=== PATIENT | female | born 1935 | race Hispanic/Latino ===

== ENCOUNTER 2019-01-23 07:28 | Inpatient (IN) | payer MEDICARE, OTHER ==
[2019-01-23 08:13] LABS: #Lymphocytes 1.6 thou/uL (1.20-3.40); #Monocytes 0.3 thou/uL (0.11-0.59); #Neutrophils 8.1 thou/uL (1.40-6.50); %Basophils 0.4 % (0.0-1.0); %Eosinophils 0.2 % (0.0-10.0); %Lymphocytes 15.5 % (21.0-51.0); %Monocytes 3.4 % (0.0-10.0); %Neutrophils 80.6 % (42.0-75.0); Hemoglobin 13.6 g/dL (12.0-16.0); Mean Corpuscular HGB CONC 33.1 g/dL (32.0-36.0); Mean Corpuscular Hemoglobin 29.7 pg (27.0-31.0); Mean Corpuscular Volume 89.8 fL (78.0-98.0); Mean Platelet Volume 8.7 fL (7.4-10.4); Platelet Count 208 thou/uL (130-400); RBC Distribution Width 12.7 % (11.5-14.5); Red Blood Cell (RBC) Count 4.58 mill/uL (4.20-5.40); White Blood Cell (WBC) Count 10.1 thou/uL (4.8-10.8)
--- NOTE | 2019-01-23 08:15 | RAD ---
EXAM: CHEST ONE VIEW HISTORY: Altered mental status. COMPARISON: None FINDINGS: The cardiac silhouette and pulmonary vasculature is within normal limits. There is a mild increase in bibasilar interstitial densities which could be related to infectious process versus asymmetric pulmonary edema. Minimal atelectasis is seen in the region of the lingula. There is blunting of the l eft lateral costophrenic angle which is likely related to overlying soft tissue density. However, tiny left pleural effusion cannot be entirely excluded. The osseous structures are intact. Calcified left hilar lymph node is seen. Vascular calcifications are noted in the thoracic aorta. IMPRESSION: Increase in bibasilar interstitial densities which could be related to an element of mild asymmetric pulmonary edema versus infectious process. Follow-up chest x-ray is recommended.
--- NOTE | 2019-01-23 08:23 | CT ---
CT BRAIN WITHOUT CONTRAST: HISTORY:Altered mental status COMPARISON:There are no previous exams for comparison. FINDINGS: There are foci of decreased attenuation in the periventricular white matter, consistent with chronic small vessel ischemic disease. No evidence of acute infarct, hemorrhage, midline shift or abnormal extra-axial fluid collections is seen. The ventricular size is appropriate and the basilar cisterns are patent. The bony calvarium is intact. The visualized paranasal sinuses and mastoid air cells are well aerated. IMPRESSION: No CT evidence of acute intracranial process. .
[2019-01-23 08:29] LABS: Bilirubin Negative (Negative); Blood, Urine Trace (Negative); Clarity Clear (Clear); Glucose, Urine (Dipstick) Normal (Negative); Leukocyte 500 Leu/uL (Negative); Nitrite Negative (Negative); Protein, Urine (Dipstick) 20 mg/dL (Neg-Trace); Urobilinogen Normal mg/dL (Less than 2); WBC/HPF 21-50 HPF (0-3)
[2019-01-23 08:30] LABS: Bacteria/HPF 1+ HPF (None Seen)
[2019-01-23 08:37] LABS: ALT (SGPT) 13 U/L (8-55); AST (SGOT) 16 U/L (5-34); Albumin 4.3 g/dL (3.4-4.8); Alkaline Phosphatase 70 U/L (40-110); Anion Gap 15 mmol/L (10-20); BUN (Urea Nitrogen) 25 mg/dL (9.8-20.1); Bilirubin, Total 0.4 mg/dL (0.2-1.2); CK (CPK) 65 U/L (29-168); Calc. Creatinine Clearance 0 mL/min (70-130); Calcium 9.7 mg/dL (7.8-10.44); Carbon Dioxide 23 mmol/L (23-31); Chloride 103 mmol/L (98-107); Estimated GFR-MDRD 48; Globulin 3.1 g/dL (2.4-3.5); Glucose 64 mg/dL (83-110); Lipase 152 U/L (8-78); Potassium 4.9 mmol/L (3.5-5.1); Protein, Total 7.4 g/dL (6.0-8.3); Sodium 136 mmol/L (136-145)
[2019-01-23 08:40] LABS: CKMB 2.9 ng/mL (0-6.6)
[2019-01-23] MEDS ORDERED: Levofloxacin 500 mg/D5W 100 ml Premix Bag ONE (08:49)
[2019-01-23] MEDS ORDERED: Aspirin Chewable 81 MG TAB ONE (09:11)
[2019-01-23] MEDS ORDERED: Enoxaparin Sodium 60 MG/0.6 ML SYRINGE ONE ×2 (09:11→09:13)
[2019-01-23] MEDS ORDERED: Metoprolol Tartrate 5 MG/5 ML VIAL ONE (10:03)
[2019-01-23 11:44] LABS: Troponin I 0.021 ng/mL (< 0.028)
[2019-01-23] MEDS ORDERED: Ondansetron PF 4 MG/2 ML Vial IVP PRN (13:39)
[2019-01-23] MEDS ORDERED: Ondansetron ODT 4 MG TAB SL PRN (13:39)
[2019-01-23] MEDS ORDERED: Sodium Chloride 0.9% 1,000 ML IV SCH ×3 (13:39→21:15)
[2019-01-23 14:12] VITALS: BMI 18.9
[2019-01-23 14:40] LABS: Troponin I 0.016 ng/mL (< 0.028)
[2019-01-23] MEDS ORDERED: Dextrose 5% in Water 1,000 ML IV PRN (17:23)
[2019-01-23] MEDS ORDERED: HumaLOG 300 UNITS/3 ML VIAL SC PRN (17:23)
[2019-01-23] MEDS ORDERED: Dextrose 50% Abboject 50 ML SYRINGE SLOW IVP PRN (17:23)
[2019-01-23] MEDS ORDERED: Acetaminophen 650 MG Suppository PR PRN (17:25)
[2019-01-23] MEDS: hydrALAZINE 20 MG/ML VIAL SLOW IVP PRN (18:03)
--- NOTE | 2019-01-23 19:01 | HP ---
PRIMARY CARE PHYSICIAN: Dr. Soria. CHIEF COMPLAINT: "I think because I was weak." HISTORY OF PRESENT ILLNESS: Ms. Hassan is a pleasant 83-year-old woman, who was brought to the emergency department by her , per ED reports, due to persisting weakness. The patient states she has underlying issues with her memory and does not recall exactly what happened. She does not remember having any type of fall or trauma. There are no family members at bedside. She was brought in by EMS and per ED notes due to the general weakness, she had difficulty getting out of bed. Apparently noted to have slurred speech again per emergency department note. She has had similar episodes in the past. Blood pressure obtained by EMS was elevated at 200/100. She was given nitroglycerin spray x2, and blood pressure improved to 127/80. Her glucose was 70. On arrival to the emergency department, she had a blood pressure of 190/96. Heart rate was 100. She was given metoprolol 5 mg. She had an EKG done showing atrial fibrillation and per ED note, she does not have history of atrial fibrillation. She was also given aspirin 324 mg as well as Lovenox 1 mg/kg. The patient was given 1 L of normal saline. She underwent laboratory studies which showed white count of 10.1, hemoglobin of 13.6, hematocrit 41.1, platelets 208, neutrophils 80.6%. D-dimer was negative. Sodium 136, potassium 4.9, BUN 25, creatinine 1.09, GFR 48, glucose 64, calcium 9.7, total bilirubin 0.4, AST 16, ALT 13, alkaline phosphatase 70, ammonia 73. BNP elevated at 204.7. Troponin negative x3. CK-MB 2.9, CK 65, total protein 7.4, and lipase of 152. Prolactin was normal. The patient did have urinalysis done, which was notable for trace blood, 500 leukocyte esterase, red blood cells and 21 to 50 white blood cells with 1+ bacteria. She was started on IV antibiotics with Levaquin. The patient does confirm experiencing dysuria for the last couple of days. Denies having any hematuria. Reports having urinary frequency. Denies having any fevers, chills, or sweats. States she has had a reduced appetite for quite some time and states she only eats when she is hungry. Denies any nausea or vomiting. Reports moving her bowels as normal without any diarrhea, constipation, or blood in the stool. No recent fevers, chills, or sweats. All other review of systems are negative. PAST MEDICAL HISTORY: 1. Type 2 diabetes. 2. Hypertension. 3. Depression. PAST SURGICAL HISTORY: None. SOCIAL HISTORY: The patient states she lives with her . She states she is able to walk usually with the help of a walker. More recently, she has been feeling weak and fatigued. Not mobilizing as much. ALLERGIES: NO KNOWN DRUG ALLERGIES. CURRENT MEDICATIONS: 1. Amlodipine. 2. Celexa. 3. Glyburide. 4. Metformin. PHYSICAL EXAMINATION: GENERAL: The patient appears thin and frail, but in no acute distress. Resting comfortably in bed. VITAL SIGNS: Temperature 98.2, pulse 72, respirations 16, O2 saturation 95% on room air, and blood pressure 191/86. HEENT: Normocephalic and atraumatic. Pupils are equal, round, and reactive to light. Sclerae without icterus. Oropharynx is clear. NECK: Supple. LUNGS: Clear to auscultation bilaterally without any wheezes, rales, or rhonchi. CARDIAC: Regular rate and rhythm without audible murmurs, rubs, or gallops. ABDOMEN: Soft, nontender, nondistended. Normoactive bowel sounds present. EXTREMITIES: No lower leg swelling or edema. NEUROLOGIC: Alert and oriented x3. Able to follow commands and able to answer questions appropriately. Power 5/5 in all limbs. No altered sensation. No neuro deficits. No past-pointing. SKIN: Warm and dry. INVESTIGATIONS: Laboratory studies as mentioned above. Chest x-ray showed increase in bibasilar interstitial densities which could be related to an element of mild asymmetric pulmonary edema versus infectious process. Follow chest x-ray was recommended. CT of the brain showed no CT evidence of acute intracranial process. IMPRESSION AND PLAN: Ms. Hassan is a pleasant 83-year-old woman, who has been referred for management of the following. 1. Slurred speech. She did have associated elevated blood pressure in the 200s. Blood pressure currently is 191/86. She appears to have dementia, but unable to reach family to obtain more details regarding the slurred speech that was reported. No neuro deficits present on exam at this time. CT of the brain negative. We will obtain echo, carotid Dopplers, and MRI. Lipid panel to be done with morning labs. NIH q.shift. Day team to decide if no further investigations or neurology assessment indicated. CT angiogram not ordered given underlying chronic kidney disease. 2. Possible new onset atrial fibrillation. Per ED note, she was in atrial fibrillation in the ER. We will repeat EKG. The patient has been given Lovenox as well as aspirin. Troponins were negative. We will continue to monitor. 3. Urinary tract infection. We will continue IV antibiotics. Urine culture pending. We will obtain a postvoid bladder scan. 4. Mildly elevated ammonia of 73 with an elevated lipase. Otherwise, LFTs normal. She was given lactulose in the emergency department. We will continue to monitor. 5. Weakness possibly due to combination of underlying urinary tract infection and nutrition. The patient has not been eating much. She does appear thin and frail. States she has no appetite. Consult placed to dietitian. PT/OT consult is requested. 6. Diabetes mellitus. Hold glyburide and metformin. Cover with insulin sliding scale. Monitor blood glucose. She did have low glucose in the 60s when checked by EMS and perhaps it may have been the cause of the period of altered mental status. We will check hemoglobin A1c. Might not need these medications if her intake has significantly decreased. We will need to verify her current functional status with family. 7. Gastrointestinal prophylaxis with famotidine. 8. Deep venous thrombosis prophylaxis with mechanical SCDs. 9. Code status, full. Surrogate decision maker is her , Dominic Hassan. The patient's case to be discussed with attending for further recommendations. Job ID: [id number]
--- NOTE | 2019-01-23 20:01 | ULT ---
BILATERAL CAROTID DUPLEX ULTRASOUND: HISTORY: TIA TECHNIQUE: Grayscale, color-flow and spectral Doppler ultrasound imaging of the extracranial carotid artery syst ems and vertebral arteries was performed bilaterally. FINDINGS: There is mild atherosclerotic plaque involving the proximal internal carotid arteries. The peak systolic velocity in the right ICA measures 84 cm/s. The peak systolic velocity in the righ t CCA measures 95 cm/s. The peak systolic velocity in the left ICA measures 64 cm/s. The peak systolic velocity in the lef t CCA measures 86 cm/s. The right IC/CC ration is0.88. The left IC/CC ratio is 0.75. Vertebral flow: antegrade, bilaterally. . IMPRESSION: No hemodynamically significant stenosis of Both ICAs.
[2019-01-23] MEDS ORDERED: Famotidine/PF 20 mg/2ml Vial SLOW IVP SCH (21:00)
[2019-01-24] MEDS: hydrALAZINE 20 MG/ML VIAL SLOW IVP PRN ×2 (04:33→09:05)
[2019-01-24 04:59] LABS: #Basophils 0.1 thou/uL (0.0-0.2); #Lymphocytes 2.4 thou/uL (1.20-3.40); #Monocytes 0.5 thou/uL (0.11-0.59); #Neutrophils 4.6 thou/uL (1.40-6.50); %Basophils 1.3 % (0.0-1.0); %Eosinophils 0.6 % (0.0-10.0); %Lymphocytes 31.1 % (21.0-51.0); %Neutrophils 60.1 % (42.0-75.0); Hemoglobin 13.1 g/dL (12.0-16.0); Mean Corpuscular HGB CONC 33.2 g/dL (32.0-36.0); Mean Corpuscular Hemoglobin 29.3 pg (27.0-31.0); Mean Corpuscular Volume 88.3 fL (78.0-98.0); Mean Platelet Volume 8.6 fL (7.4-10.4); Platelet Count 226 thou/uL (130-400); RBC Distribution Width 12.8 % (11.5-14.5); Red Blood Cell (RBC) Count 4.48 mill/uL (4.20-5.40); White Blood Cell (WBC) Count 7.7 thou/uL (4.8-10.8)
[2019-01-24 05:18] LABS: Anion Gap 12 mmol/L (10-20); BUN (Urea Nitrogen) 13 mg/dL (9.8-20.1); Calc. Creatinine Clearance 35 mL/min (70-130); Calcium 8.9 mg/dL (7.8-10.44); Carbon Dioxide 23 mmol/L (23-31); Cardiac Risk 2.7 (Less than 4.5); Chloride 106 mmol/L (98-107); Cholesterol 228 mg/dl (< 200 Desired); Estimated GFR-MDRD 63; Glucose 138 mg/dL (83-110); HDL Cholesterol 86 mg/dL (>60 Neg Risk); LDL Cholesterol, Calculated 123 mg/dL; Potassium 4.1 mmol/L (3.5-5.1); Sodium 137 mmol/L (136-145); Triglycerides 95 mg/dL (Less than 150)
--- NOTE | 2019-01-24 08:34 | RAD ---
Chest 2 views HISTORY: Dyspnea. COMPARISON: 01/23/2019. FINDINGS: Cardiac silhouette and pulmonary vasculature are unremarkable. Mediastinum is midline with aortic calcification and calcified lymph nodes. Calcified granulomata are consistent with healed granulomatous disease. Lungs remain slightly hyperinflated. No confluent airspace consolidation, pneu mothorax, or pleural fluid. Lobular calcific density over the gallbladder fossa. IMPRESSION: Pulmonary hyperinflation. No evidence of edema. Atherosclerosis. Cholelithiasis.
[2019-01-24] MEDS: Amlodipine 5 mg/Benazepril 10 mg CAP PO SCH (09:47)
--- NOTE | 2019-01-24 11:07 | MRI ---
MRI BRAIN NONCONTRAST: Date: 01/24/19 INDICATION: Stroke, TIA. FINDINGS: There is mild parenchymal volume loss with compensatory dilatation of the ventricular system. No acut e territorial infarction, mass effect, or midline shift. No intracranial hemorrhagic susceptibility. There is moderate chronic ischemic disease involving cerebral white matter and there is pontine glios is. Superimposed cavitary lacunar infarction of the left paramedian naeme is present, remote. Mild muc osal thickening of the paranasal sinuses. IMPRESSION: 1. No acute territorial infarction or mass effect. 2. Chronic ischemic disease of the cerebral parenchyma and brainstem, as above. POS: [facility]
--- NOTE | 2019-01-24 11:19 | PDOC.HOSPP ---
- Subjective Encounter Date: 01/24/19 Subjective: Pt seen admitted with dizziness and slurred speech and Had High BP, says she feeling better now Dizziness better slurred speech better , having tachycardia HR 120 , Feeling dizzy on walking - Objective Vital Signs & Weight: Vital Signs (12 hours) Temp Pulse Resp BP Pulse Ox 01/24/19 09:46 116 H 136/88 01/24/19 09:00 98.3 F 125 H 16 184/95 H 99 01/24/19 05:00 136/73 01/24/19 04:10 98 F 88 14 185/90 H Weight Weight 100 lb 4.8 oz Result Diagrams: 01/24/19 04:38 01/24/19 04:38 Additional Labs: Accuchecks 01/24/19 01/23/19 01/23/19 05:42 20:20 18:18 POC Glucose 164 H 210 H 164 H Hospitalist ROS - Review of Systems Constitutional: denies: fever Eyes: denies: pain ENT: denies: ear pain Respiratory: denies: cough Cardiovascular: denies: chest pain Gastrointestinal: denies: nausea Genitourinary: denies: dysuria Musculoskeletal: denies: neck pain Neurological: reports: other Other: dizziness - Medication Medications: Active Medications Generic Name Dose Route Start Last Admin Trade Name Freq PRN Reason Stop Dose Admin Amlodipine/Benazepril HCl 1 cap 01/24/19 09:00 01/24/19 09:47 Lotrel 5/10 PO 1 cap DAILY YARELY Administration Hydralazine HCl 5 mg 01/23/19 17:22 01/24/19 09:05 Apresoline SLOW IVP 5 mg Q4H PRN Administration SBP Greater Than 180 - Exam General Appearance: awake alert Eye: anicteric sclera ENT: normocephalic atraumatic Neck: supple Heart - other findings: tachycardia and irrregular Respiratory: no wheezes Gastrointestinal: soft Extremities: no cyanosis Neurological: cranial nerve grossly intact Musculoskeletal: normal tone Psychiatric: normal affect Hosp A/P - Plan Slurred speech with dizziness MRI brain neg for acute findings , has chronic infarct , will add aspirin and statin , carotid doppler neg , Pt at her base line but c/o dizziness on walking will get PT evaluation Tachycardia with possible MAT doubt Afib Cardiology consulted for evaluation added metoprolol for HR control DM Continue sliding scale insulin HTN with hypertensive urgency Continue to monitor currently improving DVT/GI prophyalxis
[2019-01-24] MEDS ORDERED: Metoprolol Tartrate 25 MG TAB PO SCH ×2 (12:15→21:00)
[2019-01-24] MEDS: cefTRIAXone\\ROCEPHIN 1 GM in Sodium Chloride 0.9% 100 ML IVPB SCH (12:36)
[2019-01-24] MEDS ORDERED: FLU VACC TS2019-20(65YR UP)/PF 180 MCG/0.5 ML SYRINGE IM ONE (14:30)
[2019-01-24] MEDS ORDERED: Prevnar 13-Val Conj/PF 0.5 ML SYRINGE IM ONE (14:30)
--- NOTE | 2019-01-24 14:54 | CON ---
DATE OF CONSULTATION: HISTORY OF PRESENT ILLNESS: The patient is an 83-year-old woman, who presents for evaluation of a rapid irregular heart rhythm. The patient has no previous cardiac history. She was admitted when she suddenly had developed slurred speech and weakness. The patient denied having any palpitations. The patient denied having any chest discomfort. PAST MEDICAL HISTORY: Significant for, 1. Diabetes mellitus. 2. Hypertension. 3. Depression. PAST SURGICAL HISTORY: None. MEDICATIONS: Include, 1. Lotrel 1 tablet daily. 2. Glyburide 2.5 b.i.d. 3. Metformin 500 b.i.d. 4. Celexa 10 daily. SOCIAL HISTORY: Nonsmoker. ALLERGIES: NO KNOWN DRUG ALLERGIES. REVIEW OF SYSTEMS: Ten-point system otherwise unremarkable. PHYSICAL EXAMINATION: GENERAL: Thin woman, in no acute distress. VITAL SIGNS: Blood pressure 136/69. NECK: No jugular venous distention. No carotid bruits. LUNGS: Clear to auscultation. HEART: Irregular rate and rhythm. Normal S1 and S2. No murmurs. ABDOMEN: Nondistended. EXTREMITIES: Show no edema. VASCULAR: Radial pulses 2+. LABORATORY DATA: Sodium 137, potassium 4.1, chloride 106, bicarbonate 23, BUN 13, creatinine 0.38, glucose 138. Troponin 0.016. White blood cell count 7.7, hemoglobin 13.1, hematocrit 39.6, platelets 226. EKG revealed her to have multifocal atrial tachycardia with a nonspecific T-wave abnormality. IMPRESSION: 1. Multifocal atrial tachycardia. 2. Possible transient ischemic attack. 3. Diabetes mellitus. 4. Hypertension. 5. Dyslipidemia. RECOMMENDATIONS: This patient presents with a possible TIA. She is being treated with aspirin. Her carotid ultrasound revealed no evidence of cerebrovascular disease. Her electrocardiogram does not show atrial fibrillation, but she has a multifocal atrial tachycardia. We would start the patient on Cardizem to control the patient's heart rate. The patient should be on lipid-lowering medication with her moderate dose intensity statin with a possible TIA and diabetes mellitus. An echocardiogram has been obtained. We will follow this patient with you through her hospitalization. Job ID: [id number]
[2019-01-24] MEDS: HumaLOG 300 UNITS/3 ML VIAL SC PRN (18:36)
[2019-01-24] MEDS: Atorvastatin Calcium 20 MG TAB PO SCH (20:29)
[2019-01-24] MEDS: Famotidine 20 MG TAB PO SCH (20:31)
[2019-01-24] MEDS ORDERED: Famotidine/PF 20 mg/2ml Vial SLOW IVP SCH (21:00)
[2019-01-25] MEDS ORDERED: Temazepam 15 MG CAP PO SCH (01:30)
[2019-01-25] MEDS: HumaLOG 300 UNITS/3 ML VIAL SC PRN ×2 (08:34→17:47)
[2019-01-25] MEDS: Amlodipine 5 mg/Benazepril 10 mg CAP PO SCH (08:37)
[2019-01-25] MEDS: Citalopram 10 MG TAB PO SCH (08:37)
[2019-01-25] MEDS: Aspirin 81 mg Enteric Coated Tablet PO SCH (08:38)
[2019-01-25] MEDS: cefTRIAXone\\ROCEPHIN 1 GM in Sodium Chloride 0.9% 100 ML IVPB SCH (12:56)
--- NOTE | 2019-01-25 13:50 | PDOC.HOSPP ---
- Subjective Encounter Date: 01/25/19 Encounter Time: 13:48 Subjective: Ms. Hassan was seen today in follow-up of slurred speech, and weakness. She says she is feeling better today, but notes some pain in her right knee. She says she has arthritis, and this has hurt before in the past. - Objective Vital Signs & Weight: Vital Signs (12 hours) Temp Pulse Resp BP Pulse Ox 01/25/19 11:22 98 F 88 16 148/70 H 96 01/25/19 08:30 97.8 F 104 H 16 154/83 H 99 01/25/19 05:00 97.8 F 81 18 132/63 Weight Admit Weight 100 lb 4.8 oz Weight 98 lb 8 oz I&O: 01/24/19 01/25/19 01/26/19 06:59 06:59 05:59 Intake Total 200 Output Total 500 Balance -300 Result Diagrams: 01/24/19 04:38 01/24/19 04:38 Additional Labs: Accuchecks 01/25/19 01/25/19 01/24/19 11:37 06:04 20:11 POC Glucose 173 H 181 H 239 H 01/24/19 01/24/19 17:43 12:51 POC Glucose 223 H 352 H Hospitalist ROS - Medication Medications: Active Medications Generic Name Dose Route Start Last Admin Trade Name Freq PRN Reason Stop Dose Admin Amlodipine/Benazepril HCl 1 cap 01/24/19 09:00 01/25/19 08:37 Lotrel 5/10 PO 1 cap DAILY YARELY Administration Aspirin 81 mg 01/25/19 09:00 01/25/19 08:38 Ecotrin PO 81 mg DAILY YARELY Administration Atorvastatin Calcium 20 mg 01/24/19 21:00 01/24/19 20:29 Lipitor PO 20 mg HS YARELY Administration Citalopram Hydrobromide 10 mg 01/25/19 09:00 01/25/19 08:37 Celexa PO 10 mg DAILY YARELY Administration Famotidine 20 mg 01/24/19 21:00 01/24/19 20:31 Pepcid PO 20 mg QPM YARELY Administration Hydralazine HCl 5 mg 01/23/19 17:22 01/24/19 09:05 Apresoline SLOW IVP 5 mg Q4H PRN Administration SBP Greater Than 180 Ceftriaxone Sodium 1 gm/ 100 mls @ 200 mls/hr 01/24/19 13:00 01/25/19 12:56 Sodium Chloride IVPB 100 mls Q24HR YARELY Administration Insulin Human Lispro 0 units 01/23/19 17:23 01/25/19 08:34 Humalog SC 2 unit .MILD SLIDING SCALE PRN Administration Mild Correctional Scale - Exam Eye: PERRL, anicteric sclera Heart: RRR, no murmur, no gallops, no rubs, normal peripheral pulses Respiratory: CTAB, no wheezes, no rales, no ronchi, normal chest expansion, no tachypnea Gastrointestinal: soft, non-tender, non-distended, normal bowel sounds Extremities: no cyanosis, no clubbing, no edema Hosp A/P (1) Multifocal atrial tachycardia Code(s): I47.1 - SUPRAVENTRICULAR TACHYCARDIA Status: Acute (2) TIA (transient ischemic attack) Code(s): G45.9 - TRANSIENT CEREBRAL ISCHEMIC ATTACK, UNSPECIFIED Status: Acute (3) Osteoarthritis Code(s): M19.90 - UNSPECIFIED OSTEOARTHRITIS, UNSPECIFIED SITE Status: Acute (4) Diabetes mellitus type 2 in nonobese Code(s): E11.9 - TYPE 2 DIABETES MELLITUS WITHOUT COMPLICATIONS Status: Chronic (5) Hypertension Code(s): I10 - ESSENTIAL (PRIMARY) HYPERTENSION Status: Chronic - Plan * TIA- resolved * MAT- her heart rate is better on Cardizem * HTN- blood pressure is stable * DM- blood glucose is a bit elevated- will re-start Metformin * OA of the knees- Tylenol prn * Patient's is concerned about being alone at home most of the day. They have a home health nurse. but she only comes out once a week. They do not have any family in the area available to help * Will get a PT/OT evaluation, and screen for [facility] for PT
[2019-01-25] MEDS: Acetaminophen 325 MG TAB PO PRN (14:58)
[2019-01-25] MEDS: metFORMIN 500 MG TAB PO SCH (16:41)
[2019-01-25] MEDS: Atorvastatin Calcium 20 MG TAB PO SCH (20:52)
[2019-01-25] MEDS: Famotidine 20 MG TAB PO SCH (20:52)
[2019-01-25] MEDS: Temazepam 15 MG CAP PO PRN (20:52)
[2019-01-26] MEDS: Aspirin 81 mg Enteric Coated Tablet PO SCH (08:39)
[2019-01-26] MEDS: metFORMIN 500 MG TAB PO SCH ×2 (08:39→16:32)
[2019-01-26] MEDS: Citalopram 10 MG TAB PO SCH (08:39)
[2019-01-26] MEDS: Amlodipine 5 mg/Benazepril 10 mg CAP PO SCH (08:39)
[2019-01-26] MEDS: Acetaminophen 325 MG TAB PO PRN (08:40)
--- NOTE | 2019-01-26 12:18 | PDOC.HOSPP ---
- Subjective Encounter Date: 01/26/19 Encounter Time: 12:16 Subjective: Ms. Hassan was seen today in follow-up of altered mental status and slurred speech. She says her knee pain is better today. No new complaints. - Objective Vital Signs & Weight: Vital Signs (12 hours) Temp Pulse Resp BP Pulse Ox 01/26/19 11:11 98 F 89 16 128/61 98 01/26/19 07:34 97.4 F L 90 16 135/69 97 01/26/19 04:00 101.8 F H 91 22 H 127/93 H 97 Weight Admit Weight 100 lb 4.8 oz Weight 98 lb 8 oz I&O: 01/25/19 01/26/19 01/27/19 07:59 06:59 06:59 Intake Total Output Total Balance Result Diagrams: 01/24/19 04:38 01/24/19 04:38 Additional Labs: Accuchecks 01/26/19 01/26/19 01/25/19 10:34 05:20 20:28 POC Glucose 154 H 122 H 84 01/25/19 01/25/19 16:21 11:37 POC Glucose 237 H 173 H Hospitalist ROS - Medication Medications: Active Medications Generic Name Dose Route Start Last Admin Trade Name Freq PRN Reason Stop Dose Admin Acetaminophen 650 mg 01/23/19 17:25 01/26/19 08:40 Tylenol PO 650 mg Q4H PRN Administration Headache/Fever/Mild Pain (1-3) Amlodipine/Benazepril HCl 1 cap 01/24/19 09:00 01/26/19 08:39 Lotrel 5/10 PO 1 cap DAILY YARELY Administration Aspirin 81 mg 01/25/19 09:00 01/26/19 08:39 Ecotrin PO 81 mg DAILY YARELY Administration Atorvastatin Calcium 20 mg 01/24/19 21:00 01/25/19 20:52 Lipitor PO 20 mg HS YARELY Administration Citalopram Hydrobromide 10 mg 01/25/19 09:00 01/26/19 08:39 Celexa PO 10 mg DAILY YARELY Administration Diltiazem HCl 240 mg 01/26/19 09:00 01/26/19 08:39 Cardizem Cd PO 240 mg QAM YARELY Administration Famotidine 20 mg 01/24/19 21:00 01/25/19 20:52 Pepcid PO 20 mg QPM YARELY Administration Hydralazine HCl 5 mg 01/23/19 17:22 01/24/19 09:05 Apresoline SLOW IVP 5 mg Q4H PRN Administration SBP Greater Than 180 Insulin Human Lispro 0 units 01/23/19 17:23 01/25/19 17:47 Humalog SC 3 unit .MILD SLIDING SCALE PRN Administration Mild Correctional Scale Metformin HCl 500 mg 01/25/19 17:00 01/26/19 08:39 Glucophage PO 500 mg BID-WM YARELY Administration Sodium Chloride 10 ml 01/23/19 17:25 01/26/19 08:38 Flush - Normal Saline IVF 10 ml Q12HR PRN Administration Saline Flush Temazepam 15 mg 01/25/19 20:13 01/25/19 20:52 Restoril PO 15 mg HSPRN PRN Administration Insomnia - Exam Eye: PERRL, anicteric sclera Heart: RRR, no murmur, no gallops, no rubs, normal peripheral pulses Respiratory: CTAB, no wheezes, no rales, no ronchi, normal chest expansion, no tachypnea, normal percussion Gastrointestinal: soft, non-tender, non-distended, normal bowel sounds, no palpable masses, no hepatomegaly Extremities: no cyanosis, no clubbing, no edema Hosp A/P (1) Multifocal atrial tachycardia Code(s): I47.1 - SUPRAVENTRICULAR TACHYCARDIA Status: Acute (2) TIA (transient ischemic attack) Code(s): G45.9 - TRANSIENT CEREBRAL ISCHEMIC ATTACK, UNSPECIFIED Status: Acute (3) Osteoarthritis Code(s): M19.90 - UNSPECIFIED OSTEOARTHRITIS, UNSPECIFIED SITE Status: Acute (4) Diabetes mellitus type 2 in nonobese Code(s): E11.9 - TYPE 2 DIABETES MELLITUS WITHOUT COMPLICATIONS Status: Chronic (5) Hypertension Code(s): I10 - ESSENTIAL (PRIMARY) HYPERTENSION Status: Chronic - Plan * TIA- resolved * MAT- Continue Cardizem * HTN- blood pressure is stable * DM- blood glucose is a bit elevated- will re-start Metformin * OA of the knees- Tylenol prn * Deconditioning - continue PT/OT and await jail evaluation
[2019-01-26] MEDS: Temazepam 15 MG CAP PO PRN (20:45)
[2019-01-26] MEDS: Atorvastatin Calcium 20 MG TAB PO SCH (20:45)
[2019-01-26] MEDS: Famotidine 20 MG TAB PO SCH (20:45)
[2019-01-27 08:27] LABS: #Basophils 0.1 thou/uL (0.0-0.2); #Eosinphils 0.1 thou/uL (0.0-0.7); #Lymphocytes 1.6 thou/uL (1.20-3.40); #Monocytes 0.5 thou/uL (0.11-0.59); #Neutrophils 6.2 thou/uL (1.40-6.50); %Basophils 0.7 % (0.0-1.0); %Eosinophils 0.7 % (0.0-10.0); %Lymphocytes 18.6 % (21.0-51.0); %Monocytes 5.7 % (0.0-10.0); %Neutrophils 74.3 % (42.0-75.0); Hemoglobin 13.3 g/dL (12.0-16.0); Mean Corpuscular Hemoglobin 29.7 pg (27.0-31.0); Mean Platelet Volume 8.4 fL (7.4-10.4); Platelet Count 222 thou/uL (130-400); RBC Distribution Width 12.9 % (11.5-14.5); Red Blood Cell (RBC) Count 4.47 mill/uL (4.20-5.40); White Blood Cell (WBC) Count 8.3 thou/uL (4.8-10.8)
[2019-01-27] MEDS: Aspirin 81 mg Enteric Coated Tablet PO SCH (08:44)
[2019-01-27] MEDS: Citalopram 10 MG TAB PO SCH (08:44)
[2019-01-27] MEDS: metFORMIN 500 MG TAB PO SCH (08:44)
[2019-01-27] MEDS: Amlodipine 5 mg/Benazepril 10 mg CAP PO SCH (08:48)
[2019-01-27 09:01] LABS: Anion Gap 13 mmol/L (10-20); BUN (Urea Nitrogen) 23 mg/dL (9.8-20.1); Calc. Creatinine Clearance 24 mL/min (70-130); Calcium 9.4 mg/dL (7.8-10.44); Carbon Dioxide 24 mmol/L (23-31); Chloride 105 mmol/L (98-107); Estimated GFR-MDRD 45; Glucose 138 mg/dL (83-110); Potassium 4.3 mmol/L (3.5-5.1); Sodium 138 mmol/L (136-145)
[2019-01-27] MEDS: HumaLOG 300 UNITS/3 ML VIAL SC PRN (11:36)
[2019-01-27 12:00] VITALS: BP 138/63; TEMP 98.7
--- NOTE | 2019-01-27 13:37 | PDOC.HOSPP ---
- Subjective Encounter Date: 01/27/19 Encounter Time: 13:35 Subjective: Ms. Hassan was seen today in follow-up of TIA and SVT. She does not have any new complaints. - Objective Vital Signs & Weight: Vital Signs (12 hours) Temp Pulse Resp BP BP Pulse Ox 01/27/19 11:35 98.7 F 86 18 138/63 98 01/27/19 08:44 76 157/70 H 01/27/19 08:00 98 01/27/19 07:55 97.7 F 76 16 157/70 H 98 01/27/19 04:00 97.6 F 84 14 145/63 H 98 Weight Admit Weight 100 lb 4.8 oz Weight 92 lb 8 oz I&O: 01/26/19 01/27/19 01/28/19 06:59 06:59 06:59 Intake Total 770 480 Output Total 1000 Balance -230 480 Result Diagrams: 01/27/19 08:14 01/27/19 08:14 Additional Labs: Accuchecks 01/27/19 01/27/19 01/26/19 10:39 05:39 20:39 POC Glucose 179 H 127 H 152 H 01/26/19 16:38 POC Glucose 136 H Hospitalist ROS - Medication Medications: Active Medications Generic Name Dose Route Start Last Admin Trade Name Freq PRN Reason Stop Dose Admin Acetaminophen 650 mg 01/23/19 17:25 01/26/19 08:40 Tylenol PO 650 mg Q4H PRN Administration Headache/Fever/Mild Pain (1-3) Amlodipine/Benazepril HCl 1 cap 01/24/19 09:00 01/27/19 08:48 Lotrel 5/10 PO 1 cap DAILY YARELY Administration Aspirin 81 mg 01/25/19 09:00 01/27/19 08:44 Ecotrin PO 81 mg DAILY YARELY Administration Atorvastatin Calcium 20 mg 01/24/19 21:00 01/26/19 20:45 Lipitor PO 20 mg HS YARELY Administration Citalopram Hydrobromide 10 mg 01/25/19 09:00 01/27/19 08:44 Celexa PO 10 mg DAILY YARELY Administration Diltiazem HCl 240 mg 01/26/19 09:00 01/27/19 08:44 Cardizem Cd PO 240 mg QAM YARELY Administration Famotidine 20 mg 01/24/19 21:00 01/26/19 20:45 Pepcid PO 20 mg QPM YARELY Administration Hydralazine HCl 5 mg 01/23/19 17:22 01/24/19 09:05 Apresoline SLOW IVP 5 mg Q4H PRN Administration SBP Greater Than 180 Insulin Human Lispro 0 units 01/23/19 17:23 01/27/19 11:36 Humalog SC 2 unit .MILD SLIDING SCALE PRN Administration Mild Correctional Scale Metformin HCl 500 mg 01/25/19 17:00 01/27/19 08:44 Glucophage PO 500 mg BID-WM YARELY Administration Sodium Chloride 10 ml 01/23/19 17:25 01/26/19 08:38 Flush - Normal Saline IVF 10 ml Q12HR PRN Administration Saline Flush Temazepam 15 mg 01/25/19 20:13 01/26/19 20:45 Restoril PO 15 mg HSPRN PRN Administration Insomnia - Exam Eye: PERRL Heart: RRR, no murmur, no gallops, no rubs, normal peripheral pulses Respiratory: CTAB, no wheezes, no rales, no ronchi, normal chest expansion, no tachypnea, normal percussion Gastrointestinal: soft, non-tender, non-distended, normal bowel sounds, no palpable masses, no hepatomegaly Extremities: no cyanosis, no clubbing, no edema Hosp A/P (1) Multifocal atrial tachycardia Code(s): I47.1 - SUPRAVENTRICULAR TACHYCARDIA Status: Acute (2) TIA (transient ischemic attack) Code(s): G45.9 - TRANSIENT CEREBRAL ISCHEMIC ATTACK, UNSPECIFIED Status: Acute (3) Osteoarthritis Code(s): M19.90 - UNSPECIFIED OSTEOARTHRITIS, UNSPECIFIED SITE Status: Acute (4) Diabetes mellitus type 2 in nonobese Code(s): E11.9 - TYPE 2 DIABETES MELLITUS WITHOUT COMPLICATIONS Status: Chronic (5) Hypertension Code(s): I10 - ESSENTIAL (PRIMARY) HYPERTENSION Status: Chronic - Plan * TIA- resolved * MAT- Continue Cardizem * HTN- blood pressure is stable * DM- blood glucose is a bit elevated- will re-start Metformin * OA of the knees- Tylenol prn * Deconditioning - Her insurance company has declined to cover [facility]. She was able to ambulate 100 feet with PT * Stable for discharge home
--- NOTE | 2019-01-28 01:24 | DIS ---
DATE OF ADMISSION: 01/23/2019 DATE OF DISCHARGE: 01/27/2019 DISCHARGE DISPOSITION: Home. PRIMARY CARE PHYSICIAN: Dr. Soria. DISCHARGE DIAGNOSES: 1. Transient ischemic attack. 2. Supraventricular tachycardia. 3. Hypertension. 4. Likely early dementia. 5. Diabetes mellitus, type 2. 6. Depression. DISCHARGE MEDICATIONS: Include: 1. Lipitor 20 mg daily. 2. Cardizem CD 240 mg daily. 3. Metformin 500 mg twice daily. 4. Celexa 10 mg daily. 5. Amlodipine benazepril 5/10 once daily. 6. Aspirin 81 mg a day. 7. The patient was taken off glyburide due to hypoglycemia. CODE STATUS: Full code. ALLERGIES: NO KNOWN DRUG ALLERGIES. HOSPITAL COURSE: Ms. Hassan is a pleasant 83-year-old female, who was admitted to the hospital after she had evidence of slurred speech and some generalized weakness. She was evaluated and found to have a transient ischemic attack. She had a CT scan of the brain, which was negative. Bilateral carotid Dopplers were also negative for any flow-limiting disease and she had an echocardiogram in which the ejection fraction was estimated at 50% to 55%, and there was some evidence of diastolic dysfunction. She was also noted to have supraventricular tachycardia. She was evaluated by Cardiology and felt to have multifocal atrial tachycardia. She was started on Cardizem and this actually improved her symptoms. She was evaluated for residential due to her 's concerns of general weakness. However, on physical therapy, she did actually quite well, was able to walk 100 feet, and the insurance company denied covering residential. Therefore, she will be discharged home today to have close outpatient followup. Job ID: [id number]
--- NOTE | 2019-01-28 23:52 | PQF ---
STANISLAV SENA TONI MD [id number] [facility]-[id number] CLINICAL DOCUMENTATION CLARIFICATION FORM: POST DISCHARGE Addendum to original discharge summary date: ____ Late entry note date: __ DATE: 01/28/19 ATTN: Filipe Renteria Please exercise your independent, professional judgment in responding to the clarification form. Clinical indicators are provided on the bottom of this form for your review Please check appropriate box(s): [ ] Acute Metabolic Encephalopathy [ ] Acute Toxic Encephalopathy [ ] Transient Alteration of Awareness [ X ] Other diagnosis __Hepatic encephalopathy [ ] Unable to determine In addition, please specify: Present on Admission (POA): [ X ] Yes [ ] No [ ] Unable to determine For continuity of documentation, please document condition throughout progress notes and discharge summary. Thank You. CLINICAL INDICATORS - SIGNS / SYMPTOMS / LABS H&P p1 01/23 The patient states she has underlying issues with her memory and does not recall exactly what happened H&P p1 01/23 She underwent laboratry sturides which showed VBC10.1, Glucose 64 , GFR 48, Crea 1.09, BUN 25 H&P p3 01/23 Elevated ammonia of 73 with elevated lipase H&P p3 01/23 She did have low glucose in the 60s when checked by EMS and perhaps it may have been the cause of these medications if her intake has significantly decreased RISK FACTORS H&P p1 01/23 Type 2 DM H&P p3 01/23 83 year-old woman H&P p3 01/23 Dementia TREATMENTS: JUN 02 Infused 1L normal saline JUN 02 Lactulose H&P p3 01/23 check hemoglobin A1c (This form is maintained as a part of the permanent medical record) 2014 [employer]. All Rights Reserved [email or web address] [not provided] MTDD
== END 2019-01-27 15:16 | disposition home or self-care (01) | DRG 69 ==
LOC: ERS 07:28 → ERHOLD 10:22 → 2NO 13:41
PROVIDERS: ADMIT Internal Medicine; ATTEND Internal Medicine
PROC: 3E02340 Introduction of Influenza Vaccine into Muscle, Percutaneous Approach (ICD-10-PCS; principal; 2019-01-27)
PROC: 3E0234Z Introduction of Serum, Toxoid and Vaccine into Muscle, Percutaneous Approach (ICD-10-PCS; 2019-01-27)
DX: G45.9 Transient cerebral ischemic attack, unspecified (principal); I47.1 Supraventricular tachycardia; I10 Essential (primary) hypertension; F03.90 Unspecified dementia, unspecified severity, without behavioral disturbance, psychotic disturbance, mood disturbance, and anxiety; F32.9 Major depressive disorder, single episode, unspecified; I16.0 Hypertensive urgency; M17.0 Bilateral primary osteoarthritis of knee; E11.65 Type 2 diabetes mellitus with hyperglycemia; Z23 Encounter for immunization; Z79.899 Other long term (current) drug therapy; Z79.84 Long term (current) use of oral hypoglycemic drugs
CPT/HCPCS: 36415; 36416; 70450; 70551; 71045; 71046; 80048; 80053; 80061; 81003; 81015; 82140; 82550; 82553; 83690; 83880; 84146; 84443; 84484; 85025; 85379; 87040; 87086; 90471; 90662; 90670; 93005; 93306; 93880; 96361; 96365; 96366; 96372; 96375; G0008; G0009; J0360; J0696; J1650; J1956; J3490; S0028

== ENCOUNTER 2019-02-06 19:13 | Emergency (ER) | payer MEDICARE ==
--- NOTE | 2019-02-06 20:10 | RAD ---
Chest one view HISTORY: Cough. COMPARISON: 01/23/2019. FINDINGS: Cardiac silhouette is magnified by projection. Pulmonary vasculature is unremarkable. Media stinum is midline with aortic calcification. Calcified granulomata and mediastinal lymph nodes are consistent with healed granulomatous disease. No confluent airspace consolidation or evidence of pneu mothorax. IMPRESSION: Atherosclerosis. No active cardiopulmonary abnormalities are otherwise demonstrated.
[2019-02-06 20:33] LABS: #Basophils 0.1 thou/uL (0.0-0.2); #Lymphocytes 0.8 thou/uL (1.20-3.40); #Monocytes 0.6 thou/uL (0.11-0.59); %Eosinophils 0.1 % (0.0-10.0); %Lymphocytes 10.9 % (21.0-51.0); %Monocytes 7.4 % (0.0-10.0); %Neutrophils 80.6 % (42.0-75.0); Hemoglobin 13.1 g/dL (12.0-16.0); Mean Corpuscular HGB CONC 32.8 g/dL (32.0-36.0); Mean Corpuscular Hemoglobin 29.4 pg (27.0-31.0); Mean Corpuscular Volume 89.5 fL (78.0-98.0); Mean Platelet Volume 8.6 fL (7.4-10.4); Platelet Count 206 thou/uL (130-400); RBC Distribution Width 13.2 % (11.5-14.5); Red Blood Cell (RBC) Count 4.46 mill/uL (4.20-5.40); White Blood Cell (WBC) Count 7.4 thou/uL (4.8-10.8)
[2019-02-06 20:53] LABS: ALT (SGPT) 25 U/L (8-55); AST (SGOT) 25 U/L (5-34); Albumin 4.1 g/dL (3.4-4.8); Alkaline Phosphatase 63 U/L (40-110); Anion Gap 15 mmol/L (10-20); BUN (Urea Nitrogen) 25 mg/dL (9.8-20.1); Bilirubin, Total 0.3 mg/dL (0.2-1.2); Calc. Creatinine Clearance 0 mL/min (70-130); Calcium 9.6 mg/dL (7.8-10.44); Carbon Dioxide 22 mmol/L (23-31); Chloride 101 mmol/L (98-107); Estimated GFR-MDRD 41; Globulin 2.9 g/dL (2.4-3.5); Glucose 185 mg/dL (83-110); Potassium 4.4 mmol/L (3.5-5.1); Sodium 134 mmol/L (136-145)
[2019-02-06 21:34] LABS: Bilirubin Negative (Negative); Blood, Urine 1+ (Negative); Clarity Clear (Clear); Glucose, Urine (Dipstick) 500 mg/dL (Negative); Leukocyte Negative Leu/uL (Negative); Nitrite Negative (Negative); Protein, Urine (Dipstick) 20 mg/dL (Neg-Trace); Urobilinogen Normal mg/dL (Less than 2); WBC/HPF 0-3 HPF (0-3)
[2019-02-06 21:41] LABS: Bacteria/HPF 1+ HPF (None Seen)
--- NOTE | 2019-02-06 22:13 | CT ---
CT head noncontrast HISTORY: Altered mental status. COMPARISON: 01/23/2019. FINDINGS: There is no evidence of acute intracranial hemorrhage or infarct. Diffuse cortical atrophy and chronic ischemic small vessel disease are similar in appearance to the previous exam. There is no mass effect or shift of midline structures. Visualized paranasal sinuses remain well aerated. IMPRESSION: Chronic-type findings are stable. No acute intracranial abnormalities are demonstrated.
== END 2019-02-06 23:40 | disposition home or self-care (01) ==
LOC: ERS 19:13
DX: E11.649 Type 2 diabetes mellitus with hypoglycemia without coma (principal); F32.9 Major depressive disorder, single episode, unspecified; I10 Essential (primary) hypertension; Z79.899 Other long term (current) drug therapy
CPT/HCPCS: 36415; 36416; 70450; 71045; 80053; 81003; 81015; 82140; 83690; 84443; 84484; 85025; 87086; 93005; 96360

== ENCOUNTER 2022-06-30 10:30 | Inpatient (IN) | payer MEDICARE ==
[2022-06-30 12:02] LABS: #Lymphocytes 0.8 thou/uL (1.20-3.40); #Monocytes 0.6 thou/uL (0.11-0.59); #Neutrophils 11.9 thou/uL (1.40-6.50); %Basophils 0.3 % (0.0-1.0); %Eosinophils 0.2 % (0.0-10.0); %Lymphocytes 6.1 % (21.0-51.0); %Monocytes 4.6 % (0.0-10.0); %Neutrophils 88.9 % (42.0-75.0); Hemoglobin 11.4 g/dL (12.0-16.0); Mean Corpuscular HGB CONC 34.3 g/dL (32.0-36.0); Mean Corpuscular Hemoglobin 31.1 pg (27.0-31.0); Mean Corpuscular Volume 90.8 fl (78.0-98.0); Mean Platelet Volume 8.7 fL (7.4-10.4); Platelet Count 260 10x3/uL (130-400); RBC Distribution Width 12.1 % (11.5-14.5); Red Blood Cell (RBC) Count 3.67 mill/uL (4.20-5.40); White Blood Cell (WBC) Count 13.3 10x3/uL (4.8-10.8)
[2022-06-30 12:15] LABS: Prothrombin Time 13.1 sec (12.0-14.7)
[2022-06-30 12:16] LABS: PTT 29.9 sec (22.9-36.1)
[2022-06-30] MEDS ORDERED: Morphine 2 MG/ML VIAL ONE (12:16)
[2022-06-30 12:25] LABS: ALT (SGPT) 10 U/L (8-55); AST (SGOT) 10 U/L (5-34); Alkaline Phosphatase 87 U/L (40-110); Anion Gap 16 mmol/L (10-20); BUN (Urea Nitrogen) 18 mg/dL (9.8-20.1); Bilirubin, Total 0.6 mg/dL (0.2-1.2); CK (CPK) 169 U/L (29-168); Calc. Creatinine Clearance 0 mL/min (70-130); Calcium 9.5 mg/dL (7.8-10.44); Carbon Dioxide 20 mmol/L (23-31); Chloride 104 mmol/L (98-107); Estimated GFR 40; Globulin 3.2 g/dL (2.4-3.5); Glucose 398 mg/dL (83-110); Potassium 4.2 mmol/L (3.5-5.1); Protein, Total 7.2 g/dL (5.8-8.1); Sodium 136 mmol/L (136-145)
[2022-06-30 13:05] LABS: Bacteria/HPF 2+ HPF (None Seen); Bilirubin Negative (Negative); Blood, Urine 1+ (Negative); Clarity Clear (Clear); Glucose, Urine (Dipstick) Greater than 1000 mg/dL (Negative); Ketone, Urine Negative (Negative); Leukocyte Negative Leu/uL (Negative); Nitrite Negative (Negative); Protein, Urine (Dipstick) 30 mg/dL (Neg-Trace); RBC/HPF 0-3 HPF (0-3); Specific Gravity, Urine 1.016 (1.002-1.036); Squamous Epithelial 0-3 HPF (0-3); Urobilinogen Normal mg/dL (Less than 2); WBC/HPF 0-3 HPF (0-3); pH, Urine 5.5 (5.0-9.0)
[2022-06-30] MEDS ORDERED: Insulin Regular 300 UNITS/3 ML VIAL ONE (15:50)
[2022-06-30] MEDS ORDERED: Insulin Regular 300 UNITS/3 ML VIAL SC PRN (16:21)
[2022-06-30] MEDS ORDERED: Morphine 2 MG/ML VIAL SLOW IVP PRN (16:21)
[2022-06-30] MEDS ORDERED: Dextrose 50% Abboject 50 ML SYRINGE SLOW IVP PRN (16:21)
[2022-06-30] MEDS ORDERED: hydrALAZINE 20 MG/ML VIAL SLOW IVP PRN (16:21)
[2022-06-30] MEDS ORDERED: Dextrose 5% in Water 1,000 ML IV PRN (16:21)
[2022-06-30] MEDS ORDERED: Ondansetron PF 4 MG/2 ML Vial IVP PRN (16:21)
[2022-06-30] MEDS ORDERED: Ibuprofen 800 MG TAB PO PRN (16:25)
[2022-06-30] MEDS ORDERED: traMADol HCl 50 MG TAB PO PRN (16:25)
[2022-06-30 17:04] VITALS: BMI 18.5
[2022-06-30] MEDS: Acetaminophen 500 MG TAB PO SCH ×2 (17:22→23:30)
[2022-06-30] MEDS: Sodium Chloride 0.9% 1,000 ML IV SCH (17:22)
[2022-06-30] MEDS: traMADol HCl 50 MG TAB PO SCH ×2 (17:23→23:30)
[2022-06-30] MEDS ORDERED: Famotidine/PF 20 mg/2ml Vial SLOW IVP SCH (21:00)
[2022-06-30] MEDS: Senokot S 8.6-50 MG TAB PO SCH (21:08)
[2022-06-30] MEDS: Atorvastatin Calcium 20 MG TAB PO SCH (21:08)
[2022-06-30] MEDS: Gabapentin 100 MG CAP PO SCH (21:09)
[2022-06-30] MEDS: Nitrofurantoin Monohyd/M-Cryst 100 MG CAP PO SCH (21:09)
[2022-06-30] MEDS: busPIRone HCl 10 MG TAB PO SCH (21:09)
[2022-07-01] MEDS: traMADol HCl 50 MG TAB PO SCH ×3 (06:03→17:54)
[2022-07-01] MEDS: Acetaminophen 500 MG TAB PO SCH ×3 (06:04→17:54)
[2022-07-01] MEDS: Insulin Regular 300 UNITS/3 ML VIAL SC PRN ×3 (06:05→16:43)
[2022-07-01 06:22] LABS: #Lymphocytes 0.9 thou/uL (1.20-3.40); #Monocytes 0.5 thou/uL (0.11-0.59); #Neutrophils 10.5 thou/uL (1.40-6.50); %Eosinophils 0.3 % (0.0-10.0); %Lymphocytes 7.2 % (21.0-51.0); %Monocytes 4.2 % (0.0-10.0); %Neutrophils 88.2 % (42.0-75.0); Hemoglobin 10.8 g/dL (12.0-16.0); Mean Corpuscular HGB CONC 33.1 g/dL (32.0-36.0); Mean Corpuscular Hemoglobin 30.6 pg (27.0-31.0); Mean Corpuscular Volume 92.2 fl (78.0-98.0); Mean Platelet Volume 8.7 fL (7.4-10.4); Platelet Count 234 10x3/uL (130-400); RBC Distribution Width 12.1 % (11.5-14.5); Red Blood Cell (RBC) Count 3.52 mill/uL (4.20-5.40); White Blood Cell (WBC) Count 11.9 10x3/uL (4.8-10.8)
[2022-07-01 06:41] LABS: Anion Gap 16 mmol/L (10-20); BUN (Urea Nitrogen) 15 mg/dL (9.8-20.1); Calc. Creatinine Clearance 30 mL/min (70-130); Carbon Dioxide 19 mmol/L (23-31); Chloride 109 mmol/L (98-107); Estimated GFR 58; Glucose 154 mg/dL (83-110); Magnesium 2.1 mg/dL (1.6-2.6); Phosphorus 3.5 mg/dL (2.3-4.7); Potassium 4.2 mmol/L (3.5-5.1); Sodium 140 mmol/L (136-145)
[2022-07-01] MEDS: Polyethylene Glycol 3350 17 GM Packet PO SCH (08:17)
[2022-07-01] MEDS: Senokot S 8.6-50 MG TAB PO SCH ×2 (08:17→21:35)
[2022-07-01] MEDS: Diltiazem HCl CD 300 mg Capsule PO SCH (08:17)
[2022-07-01] MEDS: busPIRone HCl 10 MG TAB PO SCH ×2 (08:19→20:46)
[2022-07-01] MEDS: Citalopram 20 MG TAB PO SCH (08:19)
[2022-07-01] MEDS: Nitrofurantoin Monohyd/M-Cryst 100 MG CAP PO SCH ×2 (08:19→20:46)
[2022-07-01] MEDS: Gabapentin 100 MG CAP PO SCH ×2 (08:20→15:35)
[2022-07-01] MEDS: Sodium Chloride 0.9% 1,000 ML IV SCH (08:48)
[2022-07-01] MEDS ORDERED: Diltiazem HCl CD 300 mg Capsule PO SCH (09:00)
[2022-07-01] MEDS ORDERED: Famotidine/PF 20 mg/2ml Vial SLOW IVP SCH (09:00)
[2022-07-01] MEDS: Atorvastatin Calcium 20 MG TAB PO SCH (20:46)
[2022-07-02] MEDS: Acetaminophen 500 MG TAB PO SCH ×4 (00:42→17:19)
[2022-07-02] MEDS: traMADol HCl 50 MG TAB PO SCH ×4 (00:42→17:20)
[2022-07-02] MEDS: Gabapentin 100 MG CAP PO SCH ×4 (00:44→21:12)
[2022-07-02 07:33] LABS: Anion Gap 17 mmol/L (10-20); BUN (Urea Nitrogen) 22 mg/dL (9.8-20.1); Calc. Creatinine Clearance 20 mL/min (70-130); Calcium 8.9 mg/dL (7.8-10.44); Carbon Dioxide 17 mmol/L (23-31); Chloride 108 mmol/L (98-107); Estimated GFR 36; Glucose 173 mg/dL (83-110); Magnesium 2.2 mg/dL (1.6-2.6); Phosphorus 4.6 mg/dL (2.3-4.7); Potassium 4.2 mmol/L (3.5-5.1); Sodium 138 mmol/L (136-145)
[2022-07-02] MEDS ORDERED: Sodium Chloride 0.9% 1,000 ML IV SCH (08:15)
[2022-07-02] MEDS: busPIRone HCl 10 MG TAB PO SCH ×2 (08:41→21:12)
[2022-07-02] MEDS: Polyethylene Glycol 3350 17 GM Packet PO SCH (08:41)
[2022-07-02] MEDS: Senokot S 8.6-50 MG TAB PO SCH ×2 (08:41→21:12)
[2022-07-02] MEDS: Famotidine 20 MG TAB PO SCH (08:42)
[2022-07-02] MEDS: Diltiazem HCl CD 300 mg Capsule PO SCH (08:42)
[2022-07-02] MEDS: Nitrofurantoin Monohyd/M-Cryst 100 MG CAP PO SCH (08:43)
[2022-07-02] MEDS: Citalopram 20 MG TAB PO SCH (08:43)
[2022-07-02] MEDS ORDERED: Famotidine 20 MG TAB PO SCH (09:00)
[2022-07-02] MEDS: Insulin Regular 300 UNITS/3 ML VIAL SC PRN ×3 (12:03→21:15)
[2022-07-02] MEDS: Atorvastatin Calcium 20 MG TAB PO SCH (21:13)
[2022-07-03] MEDS: Acetaminophen 500 MG TAB PO SCH ×4 (00:59→17:22)
[2022-07-03] MEDS: traMADol HCl 50 MG TAB PO SCH ×4 (00:59→20:05)
[2022-07-03] MEDS: Insulin Regular 300 UNITS/3 ML VIAL SC PRN ×4 (05:22→21:43)
[2022-07-03 07:31] LABS: Anion Gap 14 mmol/L (10-20); BUN (Urea Nitrogen) 26 mg/dL (9.8-20.1); Calc. Creatinine Clearance 19 mL/min (70-130); Calcium 8.9 mg/dL (7.8-10.44); Carbon Dioxide 16 mmol/L (23-31); Chloride 109 mmol/L (98-107); Estimated GFR 34; Glucose 144 mg/dL (83-110); Magnesium 2.2 mg/dL (1.6-2.6); Phosphorus 3.8 mg/dL (2.3-4.7); Potassium 3.9 mmol/L (3.5-5.1); Sodium 135 mmol/L (136-145)
[2022-07-03] MEDS ORDERED: traMADol HCl 50 MG TAB PO PRN (07:46)
[2022-07-03] MEDS: Cefdinir 300 MG CAP PO SCH (08:49)
[2022-07-03] MEDS: Diltiazem HCl CD 300 mg Capsule PO SCH (08:49)
[2022-07-03] MEDS: Polyethylene Glycol 3350 17 GM Packet PO SCH (08:56)
[2022-07-03] MEDS: Gabapentin 100 MG CAP PO SCH ×3 (08:56→20:04)
[2022-07-03] MEDS: Famotidine 20 MG TAB PO SCH (08:57)
[2022-07-03] MEDS: Citalopram 20 MG TAB PO SCH (08:57)
[2022-07-03] MEDS: Senokot S 8.6-50 MG TAB PO SCH ×2 (08:57→20:04)
[2022-07-03] MEDS: busPIRone HCl 10 MG TAB PO SCH ×2 (08:57→20:04)
[2022-07-03] MEDS: Atorvastatin Calcium 20 MG TAB PO SCH (20:04)
[2022-07-04] MEDS: Acetaminophen 500 MG TAB PO SCH ×5 (01:05→23:11)
[2022-07-04] MEDS: Insulin Regular 300 UNITS/3 ML VIAL SC PRN (05:37)
[2022-07-04 06:29] LABS: #Eosinphils 0.1 thou/uL (0.0-0.7); #Lymphocytes 1.1 thou/uL (1.20-3.40); #Monocytes 0.5 thou/uL (0.11-0.59); #Neutrophils 12.1 thou/uL (1.40-6.50); %Basophils 0.2 % (0.0-1.0); %Eosinophils 0.5 % (0.0-10.0); %Monocytes 3.7 % (0.0-10.0); %Neutrophils 87.6 % (42.0-75.0); Hemoglobin 10.7 g/dL (12.0-16.0); Mean Corpuscular HGB CONC 31.4 g/dL (32.0-36.0); Mean Corpuscular Hemoglobin 28.9 pg (27.0-31.0); Mean Corpuscular Volume 92.2 fl (78.0-98.0); Mean Platelet Volume 8.5 fL (7.4-10.4); Platelet Count 343 10x3/uL (130-400); RBC Distribution Width 12.7 % (11.5-14.5); Red Blood Cell (RBC) Count 3.71 mill/uL (4.20-5.40); White Blood Cell (WBC) Count 13.8 10x3/uL (4.8-10.8)
[2022-07-04 06:50] LABS: Anion Gap 22 mmol/L (10-20); BUN (Urea Nitrogen) 27 mg/dL (9.8-20.1); Calc. Creatinine Clearance 19 mL/min (70-130); Calcium 9.4 mg/dL (7.8-10.44); Carbon Dioxide 12 mmol/L (23-31); Chloride 108 mmol/L (98-107); Estimated GFR 35; Glucose 184 mg/dL (83-110); Magnesium 2.3 mg/dL (1.6-2.6); Phosphorus 3.3 mg/dL (2.3-4.7); Potassium 4.3 mmol/L (3.5-5.1); Sodium 138 mmol/L (136-145)
[2022-07-04] MEDS: busPIRone HCl 10 MG TAB PO SCH ×2 (08:37→21:21)
[2022-07-04] MEDS: Famotidine 20 MG TAB PO SCH (08:37)
[2022-07-04] MEDS: Cefdinir 300 MG CAP PO SCH (08:37)
[2022-07-04] MEDS: Polyethylene Glycol 3350 17 GM Packet PO SCH (08:37)
[2022-07-04] MEDS: Gabapentin 100 MG CAP PO SCH (08:38)
[2022-07-04] MEDS: Senokot S 8.6-50 MG TAB PO SCH ×2 (08:39→21:21)
[2022-07-04] MEDS: Citalopram 20 MG TAB PO SCH (08:39)
[2022-07-04] MEDS: Diltiazem HCl CD 300 mg Capsule PO SCH (08:39)
[2022-07-04] MEDS: traMADol HCl 50 MG TAB PO SCH (08:40)
[2022-07-04] MEDS: Lactated Ringer's 1,000 ML IV SCH ×2 (09:42→21:21)
[2022-07-04] MEDS: Atorvastatin Calcium 20 MG TAB PO SCH (21:21)
[2022-07-04] MEDS: Cyclobenzaprine 10 MG TAB PO PRN (21:27)
[2022-07-05] MEDS: Acetaminophen 500 MG TAB PO SCH ×4 (05:22→22:45)
[2022-07-05] MEDS: Lactated Ringer's 1,000 ML IV SCH (09:20)
[2022-07-05] MEDS: busPIRone HCl 10 MG TAB PO SCH ×2 (09:21→22:45)
[2022-07-05] MEDS: Famotidine 20 MG TAB PO SCH (09:22)
[2022-07-05] MEDS: Citalopram 20 MG TAB PO SCH (09:22)
[2022-07-05] MEDS: Cyclobenzaprine 10 MG TAB PO PRN (09:22)
[2022-07-05] MEDS: Senokot S 8.6-50 MG TAB PO SCH ×2 (09:22→23:00)
[2022-07-05] MEDS: Polyethylene Glycol 3350 17 GM Packet PO SCH (09:23)
[2022-07-05] MEDS: Diltiazem HCl CD 300 mg Capsule PO SCH (09:41)
[2022-07-05 09:52] LABS: Anion Gap 22 mmol/L (10-20); BUN (Urea Nitrogen) 19 mg/dL (9.8-20.1); Calc. Creatinine Clearance 26 mL/min (70-130); Carbon Dioxide 13 mmol/L (23-31); Chloride 108 mmol/L (98-107); Estimated GFR 49; Glucose 191 mg/dL (83-110); Magnesium 2.1 mg/dL (1.6-2.6); Phosphorus 2.8 mg/dL (2.3-4.7); Potassium 4.1 mmol/L (3.5-5.1); Sodium 139 mmol/L (136-145)
[2022-07-05] MEDS: Insulin Regular 300 UNITS/3 ML VIAL SC PRN (12:26)
[2022-07-05 13:02] LABS: Lactic Acid 2.8 mmol/L (0.5-2.2)
[2022-07-05 16:17] LABS: Albumin 3.5 g/dL (3.4-4.8)
[2022-07-05 16:17] LABS: Actual Bicarbonate (HCO3a) 16.9 mEq/L (22-28); Base Excess (BEa) -5.2 mEq/L (-2.0 to +3.0); Calcium, Ionized (arterial) 1.24 mmol/L (1.12-1.30); Carboxyhemoglobin (COHb) 0.4 gm% (0.0-3.0); Hemoglobin (Hb) 11.7 g/dL (12.0-16.0); pH, Arterial 7.47 (7.35-7.45)
[2022-07-05 16:18] LABS: CO2 Tension 23.9 mmHg (35.0-45.0)
[2022-07-05 16:19] LABS: ALV-art Gradient 64.555 mmHg (0-20); O2 Tension (PaO2), arterial 55.3 mmHg (> 60.0); Puncture Site RRA
[2022-07-05 18:12] LABS: Bilirubin Negative (Negative); Blood, Urine Small (Negative); Glucose, Urine (Dipstick) 100 mg/dL (Negative); Ketone, Urine 15 mg/dL (Negative); Leukocyte Small (Negative); Nitrite Negative (Negative); Protein, Urine (Dipstick) Trace mg/dL (Neg-Trace); Urobilinogen 0.2 mg/dL (Less than 2)
[2022-07-05 18:14] LABS: Clarity Hazy (Clear)
[2022-07-05 18:16] LABS: Bacteria/HPF 1+ HPF (None Seen); RBC/HPF 0-3 HPF (0-3); Squamous Epithelial 0-3 HPF (0-3); WBC/HPF 0-3 HPF (0-3)
[2022-07-05 18:34] LABS: #Basophils 0.2 thou/uL (0.0-0.2); #Monocytes 0.3 thou/uL (0.11-0.59); #Neutrophils 11.9 thou/uL (1.40-6.50); %Basophils 1.3 % (0.0-1.0); %Eosinophils 0.2 % (0.0-10.0); %Lymphocytes 7.4 % (21.0-51.0); %Monocytes 2.3 % (0.0-10.0); %Neutrophils 88.8 % (42.0-75.0); Hemoglobin 11.4 g/dL (12.0-16.0); Mean Corpuscular HGB CONC 32.1 g/dL (32.0-36.0); Mean Corpuscular Hemoglobin 29.5 pg (27.0-31.0); Mean Corpuscular Volume 92.1 fl (78.0-98.0); Platelet Count 360 10x3/uL (130-400); RBC Distribution Width 12.8 % (11.5-14.5); Red Blood Cell (RBC) Count 3.87 mill/uL (4.20-5.40); White Blood Cell (WBC) Count 13.4 10x3/uL (4.8-10.8)
[2022-07-05 18:56] LABS: Anion Gap 21 mmol/L (10-20); BUN (Urea Nitrogen) 16 mg/dL (9.8-20.1); Calc. Creatinine Clearance 30 mL/min (70-130); Calcium 9.3 mg/dL (7.8-10.44); Carbon Dioxide 14 mmol/L (23-31); Chloride 109 mmol/L (98-107); Estimated GFR 58; Glucose 111 mg/dL (83-110); Magnesium 1.9 mg/dL (1.6-2.6); Phosphorus 2.3 mg/dL (2.3-4.7); Potassium 3.8 mmol/L (3.5-5.1); Sodium 140 mmol/L (136-145)
[2022-07-05] MEDS ORDERED: Furosemide 20 MG/2 ML VIAL SLOW IVP SCH (19:15)
[2022-07-05] MEDS: Amiodarone 450 MG in Dextrose 5% in Water 250 ML IVPB SCH (20:43)
[2022-07-05] MEDS ORDERED: Insulin Glargine 30 UNITS/0.3 ML VIAL SC SCH (21:00)
[2022-07-05] MEDS: Atorvastatin Calcium 20 MG TAB PO SCH (22:46)
[2022-07-05] MEDS ORDERED: Amiodarone 150 MG, Admixture Fee 1 EACH in Dextrose 5% in Water 100 ML IVPB SCH (23:00)
[2022-07-06] MEDS: Amiodarone 450 MG in Dextrose 5% in Water 250 ML IVPB SCH ×2 (03:56→19:19)
[2022-07-06 05:01] LABS: #Lymphocytes 1.1 thou/uL (1.20-3.40); #Monocytes 0.4 thou/uL (0.11-0.59); #Neutrophils 8.5 thou/uL (1.40-6.50); %Basophils 0.4 % (0.0-1.0); %Eosinophils 0.4 % (0.0-10.0); %Lymphocytes 11.3 % (21.0-51.0); %Monocytes 4.1 % (0.0-10.0); %Neutrophils 83.8 % (42.0-75.0); Hemoglobin 10.4 g/dL (12.0-16.0); Mean Corpuscular HGB CONC 33.8 g/dL (32.0-36.0); Mean Corpuscular Hemoglobin 30.8 pg (27.0-31.0); Mean Corpuscular Volume 91.3 fl (78.0-98.0); Mean Platelet Volume 7.7 fL (7.4-10.4); Platelet Count 306 10x3/uL (130-400); RBC Distribution Width 12.9 % (11.5-14.5); Red Blood Cell (RBC) Count 3.39 mill/uL (4.20-5.40); White Blood Cell (WBC) Count 10.1 10x3/uL (4.8-10.8)
[2022-07-06] MEDS: Acetaminophen 500 MG TAB PO SCH ×4 (05:05→23:24)
[2022-07-06 05:24] LABS: Anion Gap 18 mmol/L (10-20); BUN (Urea Nitrogen) 14 mg/dL (9.8-20.1); Calc. Creatinine Clearance 28 mL/min (70-130); Calcium 8.8 mg/dL (7.8-10.44); Carbon Dioxide 17 mmol/L (23-31); Chloride 107 mmol/L (98-107); Estimated GFR 53; Glucose 187 mg/dL (83-110); Magnesium 1.8 mg/dL (1.6-2.6); Potassium 3.6 mmol/L (3.5-5.1); Sodium 138 mmol/L (136-145)
[2022-07-06 05:28] LABS: Phosphorus 2.6 mg/dL (2.3-4.7)
[2022-07-06] MEDS: Insulin Regular 300 UNITS/3 ML VIAL SC PRN ×2 (06:15→17:30)
[2022-07-06] MEDS ORDERED: Magnesium 2 GM/50 ML(in water) 2 GM in Premix Bag 1 BAG IVPB SCH (08:45)
[2022-07-06] MEDS: Diltiazem HCl CD 300 mg Capsule PO SCH (13:56)
[2022-07-06] MEDS: Famotidine 20 MG TAB PO SCH (13:58)
[2022-07-06] MEDS: busPIRone HCl 10 MG TAB PO SCH ×2 (13:59→20:28)
[2022-07-06] MEDS: Senokot S 8.6-50 MG TAB PO SCH ×2 (13:59→20:28)
[2022-07-06] MEDS: Citalopram 20 MG TAB PO SCH (13:59)
[2022-07-06] MEDS: Polyethylene Glycol 3350 17 GM Packet PO SCH (13:59)
[2022-07-06] MEDS: Metoprolol Tartrate 25 MG TAB PO SCH (20:28)
[2022-07-06] MEDS: Atorvastatin Calcium 20 MG TAB PO SCH (20:28)
[2022-07-07 05:01] LABS: #Eosinphils 0.2 thou/uL (0.0-0.7); #Lymphocytes 1.7 thou/uL (1.20-3.40); #Monocytes 0.5 thou/uL (0.11-0.59); #Neutrophils 5.4 thou/uL (1.40-6.50); %Basophils 0.4 % (0.0-1.0); %Lymphocytes 21.4 % (21.0-51.0); %Monocytes 6.7 % (0.0-10.0); %Neutrophils 68.5 % (42.0-75.0); Hemoglobin 10.1 g/dL (12.0-16.0); Mean Corpuscular HGB CONC 32.3 g/dL (32.0-36.0); Mean Corpuscular Hemoglobin 29.7 pg (27.0-31.0); Mean Corpuscular Volume 91.8 fl (78.0-98.0); Platelet Count 291 10x3/uL (130-400); RBC Distribution Width 13.4 % (11.5-14.5); Red Blood Cell (RBC) Count 3.42 mill/uL (4.20-5.40); White Blood Cell (WBC) Count 7.9 10x3/uL (4.8-10.8)
[2022-07-07 05:24] LABS: Anion Gap 13 mmol/L (10-20); BUN (Urea Nitrogen) 17 mg/dL (9.8-20.1); Calc. Creatinine Clearance 26 mL/min (70-130); Calcium 8.4 mg/dL (7.8-10.44); Carbon Dioxide 23 mmol/L (23-31); Chloride 104 mmol/L (98-107); Estimated GFR 50; Glucose 192 mg/dL (83-110); Phosphorus 2.1 mg/dL (2.3-4.7); Sodium 137 mmol/L (136-145)
[2022-07-07] MEDS: Insulin Regular 300 UNITS/3 ML VIAL SC PRN ×2 (05:24→17:30)
[2022-07-07] MEDS: Acetaminophen 500 MG TAB PO SCH ×3 (05:24→17:31)
[2022-07-07] MEDS: Potassium Chloride 20 MEQ TAB PO SCH ×2 (08:50→17:30)
[2022-07-07] MEDS: Amiodarone 200 MG TAB PO SCH ×2 (08:50→21:24)
[2022-07-07] MEDS: busPIRone HCl 10 MG TAB PO SCH ×2 (08:50→21:24)
[2022-07-07] MEDS: Diltiazem HCl CD 300 mg Capsule PO SCH (08:50)
[2022-07-07] MEDS: Metoprolol Tartrate 25 MG TAB PO SCH ×2 (08:50→21:25)
[2022-07-07] MEDS: Famotidine 20 MG TAB PO SCH (08:50)
[2022-07-07] MEDS: Citalopram 20 MG TAB PO SCH (08:50)
[2022-07-07] MEDS: Polyethylene Glycol 3350 17 GM Packet PO SCH (08:54)
[2022-07-07] MEDS: Tamsulosin HCl 0.4 MG CAP PO SCH (08:54)
[2022-07-07] MEDS: Senokot S 8.6-50 MG TAB PO SCH ×2 (08:54→21:25)
[2022-07-07] MEDS ORDERED: Potassium Phosphate 30 MMOL in Sodium Chloride 0.9% 250 ML 250 ML IVPB SCH (09:00)
[2022-07-07] MEDS ORDERED: Furosemide 20 MG/2 ML VIAL SLOW IVP SCH (10:30)
[2022-07-07 15:36] LABS: Anion Gap 17 mmol/L (10-20); BUN (Urea Nitrogen) 22 mg/dL (9.8-20.1); Calc. Creatinine Clearance 23 mL/min (70-130); Carbon Dioxide 22 mmol/L (23-31); Chloride 106 mmol/L (98-107); Estimated GFR 44; Glucose 228 mg/dL (83-110); Magnesium 1.9 mg/dL (1.6-2.6); Potassium 4.8 mmol/L (3.5-5.1); Sodium 140 mmol/L (136-145)
[2022-07-07] MEDS ORDERED: Sodium Chloride 0.9% 500 ML IV SCH (16:45)
[2022-07-07] MEDS ORDERED: Sodium Chloride 0.9% 1,000 ML IV SCH (16:45)
[2022-07-07 19:00] LABS: Phosphorus 5.9 mg/dL (2.3-4.7)
[2022-07-07] MEDS: Atorvastatin Calcium 20 MG TAB PO SCH (21:24)
[2022-07-08] MEDS: Acetaminophen 500 MG TAB PO SCH ×5 (00:40→17:16)
[2022-07-08 05:42] LABS: Anion Gap 16 mmol/L (10-20); BUN (Urea Nitrogen) 24 mg/dL (9.8-20.1); Calc. Creatinine Clearance 24 mL/min (70-130); Calcium 7.9 mg/dL (7.8-10.44); Carbon Dioxide 20 mmol/L (23-31); Chloride 109 mmol/L (98-107); Estimated GFR 44; Glucose 190 mg/dL (83-110); Phosphorus 3.2 mg/dL (2.3-4.7); Potassium 4.6 mmol/L (3.5-5.1); Sodium 140 mmol/L (136-145)
[2022-07-08] MEDS: Potassium Chloride 20 MEQ TAB PO SCH ×2 (10:31→17:16)
[2022-07-08] MEDS: Diltiazem HCl CD 300 mg Capsule PO SCH (10:31)
[2022-07-08] MEDS: Tamsulosin HCl 0.4 MG CAP PO SCH (10:32)
[2022-07-08] MEDS: Citalopram 20 MG TAB PO SCH (10:32)
[2022-07-08] MEDS: Famotidine 20 MG TAB PO SCH (10:32)
[2022-07-08] MEDS: Amiodarone 200 MG TAB PO SCH (10:32)
[2022-07-08] MEDS: Metoprolol Tartrate 25 MG TAB PO SCH (10:32)
[2022-07-08] MEDS: busPIRone HCl 10 MG TAB PO SCH (10:32)
[2022-07-08] MEDS: Polyethylene Glycol 3350 17 GM Packet PO SCH (10:32)
[2022-07-08] MEDS: Senokot S 8.6-50 MG TAB PO SCH (10:33)
[2022-07-08] MEDS: Insulin Regular 300 UNITS/3 ML VIAL SC PRN ×2 (10:40→17:22)
[2022-07-08 17:45] VITALS: TEMP 98.7
[2022-07-08 18:00] VITALS: BP 149/64
[2022-07-09] MEDS ORDERED: Amiodarone 200 MG TAB PO SCH (09:00)
== END 2022-07-08 17:35 | DRG 551 ==
LOC: ERS 10:30 → SURG A 14:13 → 2NO 07-05 19:49
PROVIDERS: ADMIT Student in an Organized Health Care Education/Training Program; ATTEND Student in an Organized Health Care Education/Training Program
DX: S32.119A Unspecified Zone I fracture of sacrum, initial encounter for closed fracture (principal); I50.33 Acute on chronic diastolic (congestive) heart failure; E87.20 Acidosis, unspecified; S32.512A Fracture of superior rim of left pubis, initial encounter for closed fracture; N39.0 Urinary tract infection, site not specified; N17.9 Acute kidney failure, unspecified; S32.129A Unspecified Zone II fracture of sacrum, initial encounter for closed fracture; E78.00 Pure hypercholesterolemia, unspecified; F32.A Depression, unspecified; E11.22 Type 2 diabetes mellitus with diabetic chronic kidney disease; D69.6 Thrombocytopenia, unspecified; I48.0 Paroxysmal atrial fibrillation; W18.30XA Fall on same level, unspecified, initial encounter; N18.9 Chronic kidney disease, unspecified; Z79.899 Other long term (current) drug therapy; Z90.49 Acquired absence of other specified parts of digestive tract
CPT/HCPCS: 36415; 36416; 36600; 70450; 71045; 72125; 72131; 72170; 80048; 80053; 81003; 81015; 82010; 82040; 82140; 82550; 82805; 83605; 83735; 83880; 84100; 84134; 84300; 84443; 84466; 84484; 85025; 85610; 85730; 86850; 86900; 86901; 87086; 93005; 93010; 93306; 96374; G0390; J0282; J1650; J1815; J1940; J2272; J3475; J7050; J7070; J7120; S0028

== ENCOUNTER 2022-07-31 18:36 | Emergency (ER) | payer MEDICARE ==
[2022-07-31 19:47] LABS: #Eosinphils 0.1 thou/uL (0.0-0.7); #Monocytes 0.7 thou/uL (0.11-0.59); #Neutrophils 9.4 thou/uL (1.40-6.50); %Basophils 0.4 % (0.0-1.0); %Monocytes 6.2 % (0.0-10.0); %Neutrophils 84.9 % (42.0-75.0); Hemoglobin 10.4 g/dL (12.0-16.0); Mean Corpuscular HGB CONC 31.8 g/dL (32.0-36.0); Mean Corpuscular Hemoglobin 29.1 pg (27.0-31.0); Mean Corpuscular Volume 91.6 fl (78.0-98.0); Mean Platelet Volume 10.3 fL (7.4-10.4); Platelet Count 278 10x3/uL (130-400); RBC Distribution Width 16.8 % (11.5-14.5); Red Blood Cell (RBC) Count 3.57 mill/uL (4.20-5.40)
[2022-07-31 20:10] LABS: ALT (SGPT) 14 U/L (8-55); AST (SGOT) 14 U/L (5-34); Alkaline Phosphatase 127 U/L (40-110); Anion Gap 15 mmol/L (10-20); BUN (Urea Nitrogen) 18 mg/dL (9.8-20.1); Bilirubin, Total 0.3 mg/dL (0.2-1.2); Calc. Creatinine Clearance 0 mL/min (70-130); Calcium 9.5 mg/dL (7.8-10.44); Carbon Dioxide 20 mmol/L (23-31); Chloride 110 mmol/L (98-107); Estimated GFR 41; Globulin 2.7 g/dL (2.4-3.5); Glucose 148 mg/dL (83-110); Potassium 4.5 mmol/L (3.5-5.1); Protein, Total 6.7 g/dL (5.8-8.1); Sodium 140 mmol/L (136-145)
[2022-07-31 20:17] LABS: INR-International Normal Ratio 0.9; Prothrombin Time 12.8 sec (12.0-14.7)
[2022-07-31 20:18] LABS: PTT 26.6 sec (22.9-36.1)
== END 2022-07-31 22:15 ==
LOC: ERS 18:36
DX: S32.591A Other specified fracture of right pubis, initial encounter for closed fracture (principal); D72.829 Elevated white blood cell count, unspecified; E11.9 Type 2 diabetes mellitus without complications; W05.0XXA Fall from non-moving wheelchair, initial encounter; Z79.84 Long term (current) use of oral hypoglycemic drugs; Z79.899 Other long term (current) drug therapy
CPT/HCPCS: 36415; 70450; 72125; 72170; 80053; 85025; 85610; 85730